=== PATIENT | female | born 1955 | race Caucasian/White ===

== ENCOUNTER 2017-01-22 05:29 | Day surgery (SDC) | payer OTHER ==
[~2017-01-22] VITALS: Ht 157.5 cm; Wt 58.5 kg
[~2017-01-22 05:29] MED LIST: ADVIL200 MG PO; BLACK COHOSH40 MG PO; PRAVACHOL20 MG PO; ZESTRIL10 MG PO
[2017-01-22 06:02] VITALS: BP 173/83
[2017-01-22 09:20] VITALS: BP 141/77
[2017-01-22 09:53] VITALS: BP 135/79
== END 2017-01-22 10:00 | disposition home or self-care (01) ==
LOC: SDC 05:29
DX: H35.341 Macular cyst, hole, or pseudohole, right eye (principal); I10 Essential (primary) hypertension; Z82.49 Family history of ischemic heart disease and other diseases of the circulatory system; Z82.61 Family history of arthritis; Z82.62 Family history of osteoporosis
CPT/HCPCS: J0690; J1100; J2795; J3300